=== PATIENT | male | born 1955 | race Caucasian/White ===

== ENCOUNTER 2020-12-13 08:03 | Outpatient (CLI) | payer BC, SELFPAY ==
--- NOTE | ~2020-12-13 | US_ITS ---
US right upper quadrant INDICATION: Hemangioma PROCEDURE: Realtime right upper abdominal ultrasound. COMPARISON: No prior studies for comparison. FINDINGS: Pancreas is not visualized due to bowel gas. There are multiple liver cysts, largest measu ring 2 cm. No solid masses are identified. There is normal directional flow in the portal vein. The gallbladder is normal without stones, gallbladder wall thickening or pericholecystic fluid. Comm on bile duct measures 5 mm. No sonographic Angeles's sign. IMPRESSION: 1: Liver cysts. Reviewed, dictated and finalized at location D. IMPRESSION: 1: Liver cysts.
== END 2020-12-13 08:04 | disposition home or self-care (01) ==
PROVIDERS: PCP Registered Nurse; Visit Provider Registered Nurse
DX: D18.03 Hemangioma of intra-abdominal structures (principal); K76.89 Other specified diseases of liver
CPT/HCPCS: 76705

== ENCOUNTER 2021-03-17 09:04 | Outpatient (CLI) | payer BC, SELFPAY ==
--- NOTE | ~2021-03-17 | MR_ITS ---
EXAMINATION: MR cervical spine wo con DATE: 03/17/2021 10:11 INDICATION: Chronic neck pain with abnormal neurologic exam. TECHNIQUE: Magnetic resonance imaging (MRI) of the cervical spine was performed without intravenous c ontrast. Sequences included sagittal T2-weighted FSE, sagittal T2-weighted FS FSE, sagittal T1-weight ed FSE, axial MERGE, and axial T2-weighted FSE. COMPARISON: Cervical spine MRI 06/07/2018 FINDINGS: There is mild kyphosis of cervical spine. There is mild chronic anterior wedging of C6 vert ebral body. There is mildly decreased disc height at C3-C4 and C4-C5, moderately decreased disc heigh t at C5-C6, and severely decreased disc height at C6-C7. The spinal cord signal intensity is normal. The following disc levels are specifically discussed: C2-C3: The disc does not extend beyond the endplate margin. There is no uncovertebral joint osteoarth ritis. There is mild bilateral facet joint osteoarthritis. There is no neural foraminal stenosis. The re is no central canal stenosis. C3-C4: There is a left central protrusion. There is mild bilateral uncovertebral joint osteoarthritis . There is mild bilateral facet joint osteoarthritis. There is mild left neural foraminal stenosis. T here is mild central canal stenosis. C4-C5: There is a left central protrusion. There is mild left uncovertebral joint osteoarthritis. The re is mild bilateral facet joint osteoarthritis. There is mild left neural foraminal stenosis. There is mild central canal stenosis. C5-C6: The disc is bulging. There is moderate bilateral uncovertebral joint osteoarthritis. There is mild bilateral facet joint osteoarthritis. There is no neural foraminal stenosis. There is mild centr al canal stenosis. C6-C7: The disc is bulging. There is mild bilateral uncovertebral joint osteoarthritis. There is mild bilateral facet joint osteoarthritis. There is mild left neural foraminal stenosis. There is no cent ral canal stenosis. C7-T1: The disc does not extend beyond the endplate margin. There is no uncovertebral joint osteoarth ritis. There is mild bilateral facet joint osteoarthritis. There is no neural foraminal stenosis. The re is no central canal stenosis. IMPRESSION: 1. Severe cervical spondylosis, stable from 06/07/2018. Reviewed, dictated and finalized at location A. LY RESOURCE COORDINATOR
== END 2021-03-17 09:05 | disposition home or self-care (01) ==
LOC: ANHIMG 09:07
PROVIDERS: PCP Registered Nurse; Visit Provider Registered Nurse
DX: M54.2 Cervicalgia (principal); G89.29 Other chronic pain; R20.0 Anesthesia of skin; R20.2 Paresthesia of skin; R29.898 Other symptoms and signs involving the musculoskeletal system; M47.812 Spondylosis without myelopathy or radiculopathy, cervical region
CPT/HCPCS: 72141

== ENCOUNTER 2023-07-27 08:46 | Outpatient (CLI) | payer OTHER, SELFPAY ==
--- NOTE | ~2023-07-27 | MR_ITS ---
MRI of the cervical spine Clinical History: Herniated disc Technique: Axial T2-weighted and gradient images, and sagittal T1-weighted, T2-weighted, and STIR sky ges were acquired. COMPARISON: 03/17/2021 Findings: Osseous alignment is unchanged, with minimal reversal of the normal cervical lordosis. No f racture or subluxation seen. No abnormal bone marrow signal identified. At C2-C3, there is no disc bulge or herniation. There is minimal facet arthropathy. No central canal stenosis, cord compression, or neural foraminal narrowing. At C3-C4, there is no significant disc bulge or herniation. There is minimal facet arthropathy. No ce ntral canal stenosis, cord compression, or neural foraminal narrowing. At C4-C5, there is minimal disc bulge. No spinal canal stenosis, cord compression, or neural foramina l narrowing. At C5-C6, there is moderate degenerative disc narrowing. No significant disc bulge or herniation. No spinal canal stenosis, cord compression, or neural foraminal narrowing. At C6-C7, there is moderate degenerative disc narrowing. No disc bulge or herniation. No spinal canal stenosis, cord compression, or neural foraminal narrowing. No abnormal signal seen in the spinal cord. Paravertebral soft tissues are unremarkable. Impression: Mild degenerative spondylosis, as above. Reviewed, dictated and finalized at location . Impression: Mild degenerative spondylosis, as above.
== END 2023-07-27 08:47 | disposition home or self-care (01) ==
PROVIDERS: PCP Registered Nurse; Visit Provider Registered Nurse
DX: G89.29 Other chronic pain (principal); M50.20 Other cervical disc displacement, unspecified cervical region; M43.02 Spondylolysis, cervical region
CPT/HCPCS: 72141

== ENCOUNTER 2023-08-05 15:28 | Outpatient (CLI) | payer OTHER, SELFPAY ==
--- NOTE | ~2023-08-05 | DEXA_ITS ---
Bone Density Report Name: JORGE GARCIA Age: 67 Sex: Male Ethnicity: White Date of : 1955 Indication: Referring Provider: SCOTT, DEANA Study: Bone densitometry was performed. Exam Date: August 05, 2023 Accession number: [id number] Bone Density: Region BMD T-score Z-score Classification AP Spine(L1-L4) 0.981 -1.0 -0.2 Normal Femoral Neck (Left) 0.797 -1.0 0.1 Normal Total Hip (Left) 1.032 0.0 0.6 Normal Femoral Neck (Right) 0.927 0.0 1.1 Normal Total Hip (Right) 1.079 0.3 0.9 Normal Total Hip Mean 1.056 0.2 0.8 Normal World Health Organization criteria for BMD impression classify patients as: Normal (T-score at or above -1.0), Osteopenia (T-score between -1.0 and -2.5), or Osteoporosis (T-score at or below -2.5). 10-year Fracture Risk: FRAX not reported because: All T-scores for Spine Total, Hip Total, Femoral Neck at or above -1.0 Previous Exams: Region Exam Age BMD T-score BMD Change BMD Change Date g/cm2 vs Baseline vs Previous AP Spine (L1-L4) 08/05/2023 67 0.981 -1.0 0.002 (0.2%)# 0.002 (0.2%)# 11/09/2015 60 0.979 -1.0 Total Hip(Left) 08/05/2023 67 1.032 0.0 0.123 (13.5%)# 0.138 (15.5%)* 08/18/2018 62 0.894 -0.9 -0.015 (-1.7%) -0.015 (-1.7%) 11/09/2015 60 0.909 -0.8 Total Hip(Right) 08/05/2023 67 1.079 0.3 0.106 (10.8%)# 0.145 (15.5%)* 08/18/2018 62 0.935 -0.7 -0.039 (-4.0%) -0.039 (-4.0%) 11/09/2015 60 0.974 -0.4 *Denotes significance at 95% confidence level, LSC for AP Spine = 0.022 g/cm2, LSC for Total Hip = 0.027 g/cm2 # Denotes dissimilar scan types or analysis methods Clinical Information Provided by Patient: Has used the following medications: Vitamin D, Calcium Patient maximum height was 71.5 Drinks caffeinated beverages Impression: The patient has normal bone mass. No significant bone loss was observed. Discussion: BONE DENSITY IS ABOVE THE MINIMUM DESIRABLE LEVEL AT ALL SKELETAL SITES TESTED. This patient?s bone mineral density is above the minimum desirable level (T-score -1.0 or better) at all sites measured. The patient should follow a healthful lifestyle (good nutrition with adequate calcium and vitamin D, and appropriate weight-bearing exercise). Follow-Up: Consider repeating this study in 5 years or sooner if there is some new clinical indication. Reported by: RENA on 08/05/2023 3:56:00 PM.
== END 2023-08-05 15:29 | disposition home or self-care (01) ==
PROVIDERS: PCP Registered Nurse; Visit Provider Registered Nurse
DX: M85.89 Other specified disorders of bone density and structure, multiple sites (principal)
CPT/HCPCS: 77080

== ENCOUNTER 2023-10-09 08:49 | Emergency (ER) | payer OTHER, SELFPAY ==
--- NOTE | ~2023-10-09 | XR_ITS ---
EXAMINATION: XR foot LT min 3V DATE: 10/09/2023 09:22 INDICATION: Fifth toe pain post trauma TECHNIQUE: Dorsoplantar, two oblique and lateral views of the left foot were obtained. COMPARISON: None. FINDINGS: Minimal dorsolateral angulation of a nondisplaced extra articular fracture across the proximal metaph yseal region of the left fifth proximal phalanx. There is some surrounding soft tissue swelling. No o ther fractures identified. Alignment is otherwise normal. The distribution of mild polyarticular oste oarthritis at the first metatarsophalangeal joint and the few of the tarsal metatarsal and interphala ngeal joints. IMPRESSION: 1. Minimal dorsal angulation of a nondisplaced extra articular fracture at the base of the left fifth proximal phalanx. Reviewed, dictated and finalized at location A.
[2023-10-09 09:06] VITALS: BP 200/81; PULSE 67; RESP 20; TEMP 36.6; O2SAT 100
--- NOTE | 2023-10-09 09:32 | ED.LOWEXIN ---
HPI - Extremity Injury (Lower) General Chief Complaint: Extremity Injury, Lower Stated Complaint: stubbed left pinky toe Time Seen by Provider: 10/09/23 09:13 Source: patient and RN notes reviewed Mode of arrival: ambulatory Limitations: no limitations History of Present Illness HPI Narrative: Patient presents today complaining of pain hand injury to the left 5th toe. States he stubbed it on his bed frame around 2:00 a.m.. He has applied ice which did give some relief. Denies numbness or tingling. Currently rates his pain 9/10 with weight-bearing. Related Data Home Medications Medication Instructions Recorded Confirmed losartan 25 mg tablet 25 mg PO TID 10/09/23 10/09/23 testosterone 1 pump topical DIRECTED 10/09/23 10/09/23 Allergies Allergy/AdvReac Type Severity Reaction Status Date / Time No Known Allergies Allergy Verified 10/09/23 09:19 Review of Systems Review of Systems: CONSTITUTIONAL: Denies body aches, fever, chills, or sweats. EYES: Denies visual changes, redness, or discharge. ENT: Denies rhinorrhea, congestion, sore throat, or otalgia. CARDIOVASCULAR: Denies chest pain, palpitations, or edema. RESPIRATORY: Denies cough or dyspnea. GASTROINTESTINAL: Denies abdominal pain, nausea, vomiting, or diarrhea. GENITOURINARY: Denies dysuria or hematuria. SKIN: Denies rash, itching, or wounds. MUSCULOSKELETAL: Denies back pain. + left 5th toe injury NEUROLOGIC: Denies headache, numbness, tingling, or weakness. PSYCH: Denies depression or anxiety. FOR[facility]LY [facility] Past Medical History Medical History (Updated 10/09/23 @ 10:00 by Haylee Carson, [facility], ) Hypertension Comments At time of signature, I have reviewed and agree with nursing past medical, surgical, social and family history unless otherwise noted. Please see nursing chart for further information. There is no relevant family history pertinent to the presenting complaint Exam Narrative: GENERAL: Well-appearing, well-nourished, and in no acute distress. HEAD: Normocephalic, atraumatic. EYES: EOMI. No redness or drainage. Conjunctivae normal. ENT: Mucous membranes pink and moist. NECK: Normal AROM. CHEST: No respiratory distress. EXTREMITIES: Left foot: Moderate edema and ecchymosis to the 5th toe with tenderness. Distal sensation intact. Capillary refill normal. Toenail unaffected. Remainder of the foot and toes unaffected. SKIN: Warm, dry, no rash. Capillary refill normal. Normal skin turgor. NEURO: No focal deficits. Alert and oriented x3. Gait steady. PSYCH: Normal affect. No signs of depression or anxiety. Course Course Level of Care: Express Care Visit Vital Signs Vital signs: Vital Signs Temperature 97.9 F 10/09/23 09:06 Pulse Rate 67 10/09/23 09:06 Respiratory Rate 20 10/09/23 09:06 Blood Pressure 200/81 H 10/09/23 09:06 Pulse Oximetry 100 10/09/23 09:06 Oxygen Delivery Room Air 10/09/23 09:06 Temperature 97.9 F 10/09/23 09:06 Pulse Rate 67 10/09/23 09:06 Respiratory Rate 20 10/09/23 09:06 Blood Pressure 200/81 H 10/09/23 09:06 Pulse Oximetry 100 10/09/23 09:06 Oxygen Delivery Room Air 10/09/23 09:06 Reviewed. Patient has not taken his morning hypertensive medication prior to arrival. MDM - Extremity Injury (Lower) MDM Narrative Medical decision making narrative: X-ray shows fracture of 5th proximal phalanx. Toe ifrah-taped. Patient declines postop shoe. Discussed conservative treatment with PCP or laundry machine tender/orthopedic follow-up in a few weeks. Patient agrees with plan. Anticipatory guidance given. Differential Diagnosis Differential diagnosis: Likely other (Toe fracture, contusion, sprain) Imaging Data Radiologist's impression: ITS Impressions Foot X-Ray 10/09/23 09:49 IMPRESSION: 1. Minimal dorsal angulation of a nondisplaced extra articular fracture at the base of the left fifth proximal phalanx. Critical Care Time Critical
== END 2023-10-09 10:05 | disposition home or self-care (01) ==
PROVIDERS: Emergency Provider Nurse Practitioner; PCP Registered Nurse
DX: S92.515A Nondisplaced fracture of proximal phalanx of left lesser toe(s), initial encounter for closed fracture (principal); W22.03XA Walked into furniture, initial encounter; I10 Essential (primary) hypertension
CPT/HCPCS: 73630; 99214; G0463

== ENCOUNTER 2023-11-19 11:28 | Outpatient (CLI) | payer OTHER, SELFPAY ==
--- NOTE | ~2023-11-19 | XR_ITS ---
XR foot LT min 3V Ordering provider: Codi Solitario, [facility] History: . CLOSED NONDISPLACED FX OF TOE OF LEFT FOOT F/U 5TH DIGIT . Comparison: October 09, 2023 FINDINGS: BONES: Fracture in the proximal metaphysis of the proximal phalanx of the little toe unchanged from p revious examination. JOINT SPACES: Narrowing of the proximal and distal interphalangeal joints. No tarsal coalition. SOFT TISSUES: Normal. IMPRESSION: Fracture of the proximal metaphysis of the proximal phalanx of the little finger. No change from prev ious examination. Reviewed, dictated and finalized at location A. IMPRESSION: Fracture of the proximal metaphysis of the proximal phalanx of the little finge r. No change from previous examination.
== END 2023-11-19 11:29 | disposition home or self-care (01) ==
PROVIDERS: PCP Registered Nurse; Visit Provider Registered Nurse
DX: S92.515D Nondisplaced fracture of proximal phalanx of left lesser toe(s), subsequent encounter for fracture with routine healing (principal); X58.XXXD Exposure to other specified factors, subsequent encounter
CPT/HCPCS: 73630